=== PATIENT | female | born 1975 | race Caucasian/White ===

== ENCOUNTER 2017-04-07 19:03 | Emergency (ER) | payer BC ==
--- NOTE | 2017-04-07 20:00 | UC ---
Complaint Female HPI - HPI Summary HPI Summary: Pt presents with complaints of a fever, pain with urination, frequency of urination, and louie blood in her urine that started earlier today. She says that she has never had a UTI before. Has not taken anything OTC. She denies SOB , chest pain, recent illness, ST, cold sxs, N/V/D/C, back pain, abdominal pain, vaginal discharge or bleeding. - History Of Current Complaint Chief Complaint: UCGU Stated Complaint: POSS UTI Time Seen by Provider: 04/07/17 19:38 Hx Obtained From: Patient Hx Last Menstrual Period: April 04 ?: No Onset/Duration: Sudden Onset Timing: Constant Severity Initially: Mild Severity Currently: None Pain Intensity: 3 Pain Scale Used: 0-10 Numeric Aggravating Factor(s): Urination Alleviating Factor(s): Nothing Associated Signs And Symptoms: Positive: Fever. Negative: Back Pain, Vaginal Bleeding/Discharge, Vaginal Discharge, Vomiting(# Of Episodes =) - Allergies/Home Medications Allergies/Adverse Reactions: Allergies Allergy/AdvReac Type Severity Reaction Status Date / Time No Known Allergies Allergy Verified 04/07/17 19:33 PMH/Surg Hx/FS Hx/Imm Hx Previously Healthy: Yes - Surgical History Surgical History: None - Social History Occupation: Employed Full-time Lives: Alone Alcohol Use: Occasionally Substance Use Type: None Smoking Status (MU): Never Smoked Tobacco Review of Systems Constitutional: Fever Skin: Negative Eyes: Negative ENT: Negative Respiratory: Negative Cardiovascular: Negative Gastrointestinal: Negative Genitourinary: Dysuria, Hematuria, Frequency, Urgency Motor: Negative Neurovascular: Negative Neurological: Negative Psychological: Negative Is Patient Immunocompromised?: No All Other Systems Reviewed And Are Negative: Yes Physical Exam Triage Information Reviewed: Yes Appearance: Ill-Appearing Vital Signs: Initial Vital Signs Temp 101.7 F 04/07/17 19:26 Pulse 95 04/07/17 19:26 Resp 16 04/07/17 19:26 BP 131/70 04/07/17 19:26 Pulse Ox 100 04/07/17 19:26 Vital Signs Reviewed: Yes Eyes: Positive: Conjunctiva Clear ENT: Positive: Normal ENT inspection, Hearing grossly normal, Pharynx normal, TMs normal. Negative: Pharyngeal erythema, Nasal congestion, Nasal drainage, TM bulging, TM dull, TM red, Tonsillar swelling, Tonsillar exudate, Sinus tenderness Neck: Positive: Supple, Nontender, No Lymphadenopathy Respiratory: Positive: Chest non-tender, Lungs clear, Normal breath sounds, No respiratory distress, No accessory muscle use Cardiovascular: Positive: RRR, No Murmur, Pulses Normal Abdomen Description: Positive: Nontender, No Organomegaly, Soft. Negative: CVA Tenderness (R), CVA Tenderness (L), Distended, Guarding Bowel Sounds: Positive: Present Neurological: Positive: Alert Psychological: Positive: Age Appropriate Behavior Skin: Negative: rashes Complaint Female Dx - Course Course Of Treatment: POC U/A revealed 3+ leuks, 3+ blood, and 3+ protein. Given the pt's abnormal presenation, abrupt onset of symptoms, louie hematuria, and elevated urine protein - the case was discussed with Dr. Saavedra. We agreed to draw a CBC and CMP, give 1g of rocephin here, rx for cipro, and fu with PCP tomorrow or [facility] this week. Possibility of, but not limited to, SHIRA, glomerulonephritis, STD, UTI, and renal calculi were considered. - Differential Dx/Diagnosis Differential Diagnosis/HQI/PQRI: Renal Colic, Retained Foreign Body, Sexually Transmitted Disease, Ureteral Stone, Urinary Tract Infection, Other - Glomerulonephritis. SHIRA. Provider Diagnoses: UTI. Hematuria. Proteinuria. Fever Discharge - Discharge Plan Condition: Stable Disposition: HOME Prescriptions: Ciprofloxacin HCl [Cipro 500 MG TAB] 500 mg PO BID #14 tab Patient Education Materials: Urinary Tract Infection in Women (ED) Referrals: Dorys Jiang MD [Primary Care Provider] - As Soon As Possible Additional Instructions: 1) Cipro 500mg twice a day for 7 days 2) Tylenol OTC for fever 3) Drink plenty of water! Follow up this week with your PCP regarding your urinary infection. If you continue to have urinary discomfort, bleeding, or develop back pain or increasing fevers - please go to the ED. Your blood pressure was high at today's visit - please see your PCP within 4 weeks for recheck and re-evaluation.
[2017-04-07] MEDS ORDERED: cefTRIAXone VIAL(*) 1,000 MG VIAL IM ONE (20:13)
[2017-04-07] MEDS ORDERED: Lidocaine 1% MPF* 2 ML VIAL INJ ONE (20:16)
[2017-04-07 21:09] VITALS: BP 125/65
[2017-04-08 10:35] LABS: Comments Flag Yes; Hematocrit 41 % (35-47); Hemoglobin 13.2 g/dl (12.0-16.0); Mean Corpuscular HGB Conc 33 g/dl (31-36); Mean Corpuscular Hemoglobin 30 pg (27-31); Mean Corpuscular Volume 93 fL (80-97); Mean Platelet Volume 11 um3 (7.4-10.4); Red Blood Count 4.37 10^6/ul (4.0-5.4); Red Cell Distribution Width 14 % (10.5-15); White Blood Count 12.2 10^3/ul (3.5-10.8)
[2017-04-08 10:36] LABS: Add Diff/Slide Review? Slide Review Added
[2017-04-08 10:51] LABS: Albumin 5.1 g/dL (3.2-5.2); BUN/Creatinine Ratio 16.2 (8-20); Calcium 10.3 mg/dL (8.6-10.3); EGFR African American 123.2 (>60); EGFR Non-African American 95.8 (>60); Globulin 2.1 g/dL (2-4); Potassium 3.7 mmol/L (3.5-5.0); Total Bilirubin 0.5 mg/dL (0.2-1.0); Total Protein 7.2 g/dL (6.4-8.9)
--- NOTE | 2017-04-08 17:18 | UC ---
Progress - Progress Note Progress Note: reviewed [facility] pt with slight elevate wbc, non concerning dif cmp reviewed non concerning no change Nae 04/08/17
== END 2017-04-07 21:00 | disposition home or self-care (01) ==
LOC: UCEAST 19:03
DX: N39.0 Urinary tract infection, site not specified (principal); R31.9 Hematuria, unspecified; R80.9 Proteinuria, unspecified; R50.9 Fever, unspecified
CPT/HCPCS: 36415; 80053; 81003; 85025; 87077; 87086; 87186; 96372; 99212; G0463; J0696